=== PATIENT | female | born 1975 | race Native Hawaiian/Other Pacific Islander ===

== ENCOUNTER 2018-04-30 08:22 | Outpatient (CLI) | payer BC ==
[2018-04-30 08:47] LABS: PLATELET COUNT 249 K/uL (152-353)
[2018-04-30 08:57] LABS: POTASSIUM 4.1 mmol/L (3.6-5.2)
== END 2018-04-30 19:53 | disposition home or self-care (01) ==
LOC: LABW 08:22
PROVIDERS: Internal Medicine
DX: E78.00 Pure hypercholesterolemia, unspecified (principal); E03.9 Hypothyroidism, unspecified
CPT/HCPCS: 36415; 80053; 80061; 81000; 84439; 84443; 85027

== ENCOUNTER 2019-09-10 07:23 | Outpatient (CLI) | payer BC ==
[2019-09-10 08:06] LABS: POTASSIUM 4.3 mmol/L (3.6-5.2)
[2019-09-10 08:13] LABS: PLATELET COUNT 256 K/uL (152-353)
== END 2019-09-10 19:12 | disposition home or self-care (01) ==
LOC: LABW 07:23
PROVIDERS: Internal Medicine
DX: E03.9 Hypothyroidism, unspecified (principal); E78.00 Pure hypercholesterolemia, unspecified
CPT/HCPCS: 36415; 80053; 80061; 84439; 84443; 85027

== ENCOUNTER 2020-11-09 21:35 | Emergency (ER) | payer BC ==
[~2020-11-09] VITALS: Ht 162.6 cm; Wt 76.2 kg
[2020-11-09 22:45] VITALS: BP 109/75; TEMP 97.4
== END 2020-11-09 22:45 | disposition home or self-care (01) ==
LOC: ED 21:35
DX: L55.0 Sunburn of first degree (principal); L29.8 Other pruritus
CPT/HCPCS: 96372; 99283; J1100; J3410

== ENCOUNTER 2021-05-14 01:08 | Emergency (ER) | payer BC ==
[~2021-05-14] VITALS: Ht 162.6 cm; Wt 81.6 kg
[2021-05-14 02:40] VITALS: BP 113/65; TEMP 97.7
== END 2021-05-14 02:40 | disposition home or self-care (01) ==
LOC: ED 01:08
DX: G43.909 Migraine, unspecified, not intractable, without status migrainosus (principal)
CPT/HCPCS: 36415; 96360; 96375; 99284; J1100; J1200; J2405; J2765

== ENCOUNTER 2021-07-30 11:50 | Outpatient (CLI) | payer BC ==
[2021-07-30 12:09] LABS: PLATELET COUNT 204 K/uL (152-353)
== END 2021-07-30 23:08 | disposition home or self-care (01) ==
LOC: LABW 11:50
PROVIDERS: ATTEND Internal Medicine
DX: K62.5 Hemorrhage of anus and rectum (principal)
CPT/HCPCS: 36415; 85027; 85610

== ENCOUNTER 2022-07-29 15:09 | Outpatient (CLI) | payer OTHER | END 2022-07-29 19:34 | disposition home or self-care (01) | LOC: US 15:09 | PROVIDERS: ATTEND Registered Nurse | DX: N92.0 Excessive and frequent menstruation with regular cycle (principal) ==